=== PATIENT | female | born 1950 | race African-American/Black ===

== ENCOUNTER 2016-12-10 06:14 | Emergency (ER) | payer BC, MEDICARE ==
[~2016-12-10] VITALS: Ht 185.4 cm; Wt 114.3 kg
[~2016-12-10 06:14] MED LIST: HYDR-2758 PO; LOSA1TAB2 PO; MELO7.5T29 PO; METO-269 PO
[2016-12-10] MEDS ORDERED: IV NORMAL SALINE 1000ML BAG 1,000 ML IV SCH (06:45)
[2016-12-10] MEDS ORDERED: ONDANSETRON PF 4 MG/2 ML VIAL. IV ONE (07:00)
[2016-12-10 07:05] LABS: BASO # 0.1 x10^3/uL (0.0-0.2); BASO % 1 % (0-3); EOS % 5 % (0-3); HEMATOCRIT 37.6 % (36.0-47.0); HEMOGLOBIN 12.4 g/dL (12.0-15.5); LYMPH # 1.3 x10^3/uL (1.0-4.8); LYMPH % 31 % (24-48); MEAN CORPUSCULAR HEMOGLOBIN 29 pg (25-35); MEAN CORPUSCULAR HGB CONC 33 g/dL (31-37); MEAN CORPUSCULAR VOLUME 88 fL (79-100); MONO % 13 % (0-9); NEUT % 50 % (31-73); PLATELET COUNT 205 x10^3/uL (140-400); RED BLOOD COUNT 4.26 x10^6/uL (3.50-5.40); WHITE BLOOD COUNT 4.1 x10^3/uL (4.0-11.0)
--- NOTE | 2016-12-10 07:07 | PHYS DOC ---
Past Medical History Past Medical History: Arthritis, CAD, Diabetes-Type II, Hypertension Past Surgical History: Angioplasty, Hysterectomy, Tonsillectomy, Other Additional Past Surgical Histo: left ankle fracture, left wrist fracture, breast surgery Alcohol Use: None Drug Use: None Adult General Chief Complaint Chief Complaint: MECHANICAL FALL HPI HPI Patient is a 66 year old female who presents with complaint of facial pain and shoulder pain after suffering a fall less than 1 hour prior to arrival. The patient states that she was leaving her apartment and had a heavy bag that caused her to lose her balance and fall onto her face and right shoulder from standing onto a concrete surface. Patient denies loss of consciousness. Patient states that she chipped her teeth and hit the right side of her cheek and lip on the concrete surface. Patient states that she is having severe pain along the top and right side of her shoulder as well as her neck. The patient was placed in a c-collar by EMS prior to arrival. Patient denies any loss of feeling in her extremities. The patient states that she takes 162 mg of aspirin daily. Patient has history of hypertension, coronary artery disease, and arthritis. Patient rates her pain as 9 out of 10. Review of Systems Review of Systems Constitutional: Denies fever or chills [] Eyes: Denies change in visual acuity, redness, or eye pain [] HENT: Facial pain, abrasions, chipped teeth [] Respiratory: Denies cough or shortness of breath [] Cardiovascular: Denies chest pain or edema [] GI: Denies abdominal pain, nausea, vomiting, bloody stools or diarrhea [] : Denies dysuria or hematuria [] Musculoskeletal: Neck pain, right shoulder pain [] Integument: Denies rash or skin lesions [] Neurologic: Denies headache, focal weakness or sensory changes [] Current Medications Current Medications Current Medications Medications (Trade) Dose Ordered Sig/Van Start Time Stop Time Status Last Admin Dose Admin Acetaminophen/ Hydrocodone Bitart (Lortab 7.5/325) 1 tab 1X ONCE 12/10/16 10:00 12/10/16 10:01 Fentanyl Citrate (Fentanyl 2ml Vial) 50 mcg PRN Q15MIN PRN 12/10/16 06:45 12/11/16 06:44 12/10/16 08:08 50 MCG Ondansetron HCl (Zofran) 4 mg 1X ONCE 12/10/16 07:00 12/10/16 07:01 DC 12/10/16 07:10 4 MG Sodium Chloride 1,000 ml @ 100 mls/hr Q10H 12/10/16 06:45 12/10/16 16:44 12/10/16 07:10 100 MLS/HR Allergies Allergies Allergies Coded Allergies Type Severity Reaction Last Updated Verified Sulfa (Sulfonamide Antibiotics) Allergy Severe anaphylaxis 06/14/13 Yes latex Allergy Severe anaphylaxis 06/14/13 Yes Physical Exam Physical Exam Constitutional: Alert, afebrile, appears in moderate discomfort. [] HENT: Normocephalic, bilateral external ears normal, abrasions over right zygomatic arch, moderate soft tissue swelling of right upper lip with overlying abrasion, enamel chipped on teeth numbers 8 and 9, oropharynx moist, no oral exudates, nose normal. [] Eyes: PERRLA, EOMI, conjunctiva normal, no discharge. [] Neck: C-collar in place, tenderness palpation over C7, trachea midline, no stridor. [] Cardiovascular:Heart rate regular rhythm, no murmur [] Lungs & Thorax: Bilateral breath sounds clear to auscultation, right clavicular tenderness to palpation, no chest ecchymosis [] Abdomen: Bowel sounds normal, soft, no tenderness, no masses, no pulsatile masses. [] Skin: Warm, dry, no erythema, no rash. [] Back: No tenderness, no CVA tenderness. [] Extremities: Right anterior, superior, and posterior shoulder tenderness to palpation, no cyanosis, no clubbing, range of motion and right shoulder not tested secondary to pain, range of motion intact in right elbow and wrist, no edema. [] Neurologic: Alert and oriented X 3, normal motor function, normal sensory function, no focal deficits noted. [] Current Patient Data Vital Signs Vital Signs Date Time Temp Pulse Resp B/P (MAP) Pulse Ox O2 Delivery O2 Flow Rate FiO2 12/10/16 08:06 76 18 145/76 (99) 98 Room Air 12/10/16 06:14 98.2 98.2 Lab Values Laboratory Tests Test 12/10/16 06:55 White Blood Count 4.1 x10^3/uL (4.0-11.0) Red Blood Count 4.26 x10^6/uL (3.50-5.40) Hemoglobin 12.4 g/dL (12.0-15.5) Hematocrit 37.6 % (36.0-47.0) Mean Corpuscular Volume 88 fL (79-100) Mean Corpuscular Hemoglobin 29 pg (25-35) Mean Corpuscular Hemoglobin Concent 33 g/dL (31-37) Red Cell Distribution Width 13.0 % (11.5-14.5) Platelet Count 205 x10^3/uL (140-400) Neutrophils (%) (Auto) 50 % (31-73) Lymphocytes (%) (Auto) 31 % (24-48) Monocytes (%) (Auto) 13 % (0-9) H Eosinophils (%) (Auto) 5 % (0-3) H Basophils (%) (Auto) 1 % (0-3) Neutrophils # (Auto) 2.1 x10^3uL (1.8-7.7) Lymphocytes # (Auto) 1.3 x10^3/uL (1.0-4.8) Monocytes # (Auto) 0.5 x10^3/uL (0.0-1.1) Eosinophils # (Auto) 0.2 x10^3/uL (0.0-0.7) Basophils # (Auto) 0.1 x10^3/uL (0.0-0.2) Prothrombin Time 13.7 SEC (11.7-14.0) Prothrombin Time INR 1.1 (0.8-1.1) PTT 31 SEC (24-38) Sodium Level 140 mmol/L (136-145) Potassium Level 4.0 mmol/L (3.5-5.1) Chloride Level 104 mmol/L (98-107) Carbon Dioxide Level 28 mmol/L (21-32) Anion Gap 8 (6-14) Blood Urea Nitrogen 15 mg/dL (7-20) Creatinine 1.0 mg/dL (0.6-1.0) Estimated GFR (Cockcroft-Gault) 66.7 Glucose Level 118 mg/dL (70-99) H Calcium Level 8.9 mg/dL (8.5-10.1) Magnesium Level 1.8 mg/dL (1.8-2.4) Laboratory Tests 12/10/16 06:55 Laboratory Tests 12/10/16 06:55 EKG EKG Not performed [] Radiology/Procedures Radiology/Procedures [facility] [address] [place] [address] IMAGING REPORT Signed PATIENT: ANY BETANCOURT ACCOUNT: [id number] : 1950 LOCATION: ER AGE: 66 SEX: F EXAM STATUS: REG ER ORD. PHYSICIAN: KAIT HULL MD REASON: fall from standing, head and facial trauma PROCEDURE: CT HEAD AND MAXILLOFACIAL WO CT head and maxillofacial without contrast 12/10/2016 Clinical indication: Fall from standing, head and facial trauma. Comparison: None. Technique: Multiple CT noncontrast images of the head and maxillofacial. Coronal and sagittal reformations of the maxillofacial region were obtained. RS Compliance Statement: One or more of the following individualized dose reduction techniques were utilized for this examination: 1. Automated exposure control 2. Adjustment of the mA and/or kV according to patient size 3. Use of iterative reconstruction technique Findings: Head: No acute intracranial hemorrhage or extra-axial fluid collection. Ventricles and subarachnoid spaces are normal in size and configuration. Velarde-white matter interfaces are maintained. Basilar cisterns are patent. No midline shift. Maxillofacial: Premandibular and maxillary midline soft tissue contusion. There is a minimally displaced midline nasal bone fracture. There is a 3 mm calcific density in the deep subcutaneous tissues at midline of the anterior nose which may represent a displaced fracture or retained foreign body (series 6/image 36). Maxillary sinus gray, orbital wall, zygomatic arches and mandible and pterygoid plates are unremarkable without acute fracture or dislocation. Globes and orbits are normal in size and configuration. Intraconal fat is clear. Impression: Head: 1. No acute intracranial hemorrhage. Maxillofacial: 1. Age-indeterminate minimally displaced midline nasal bone fracture. 2. 3 mm radiopaque density at midline at the level of the lower nasal bones may represent displaced fracture or retained foreign body. 3. Moderate premaxillary and premandibular soft tissues contusion. DICTATED and SIGNED BY: SUZANNE ROSSI MD DATE: 12/10/16 0752 CC: KAIT HULL MD; DIXON CORDOBA MD ~ [facility] [address] [place] [address] IMAGING REPORT Signed PATIENT: ANY BETANCOURT ACCOUNT: [id number] : 1950 LOCATION: ER AGE: 66 SEX: F EXAM STATUS: REG ER ORD. PHYSICIAN: KAIT HULL MD REASON: fall from standing, neck pain PROCEDURE: CT CERVICAL SPINE WO CONTRAST CT cervical spine without contrast 12/10/2016 Clinical indication: Fall from standing, neck pain. Comparison: Same day CT head and maxillofacial. Technique: Multiple CT noncontrast images of the cervical spine. Coronal and sagittal reformations were obtained. PQRS Compliance Statement: One or more of the following individualized dose reduction techniques were utilized for this examination: 1. Automated exposure control 2. Adjustment of the mA and/or kV according to patient size 3. Use of iterative reconstruction technique Findings: Cervical spine: There is reversal of the normal cervical lordosis centered at C4-C5, likely degenerative. There is 2 mm of anterolisthesis of C4 on C5. Partial ankylosis of C2-C3 vertebral body and posterior elements. No acute cervical spine fracture or subluxation. The paraspinal soft tissues are unremarkable. Visualized lung apices are clear. There is multilevel cervical disc degeneration greatest to moderate degree at C5-C6 with disc space narrowing and uncovertebral hypertrophy, facet hypertrophy and posterior disc osteophyte complex. Mild cervical spondylosis at C2-C3 C4-C5 and C6-C7. There is [id number] bilateral neural foraminal narrowing at C5-C6. Posterior disc osteophyte complex results in mild to moderate spinal canal narrowing posterior to C5-C6 and C3-C4. Impression: 1. No acute cervical spine fracture or subluxation. 2. Multilevel cervical disc degeneration and facet hypertrophy resulting in degenerative neural foraminal narrowing, greatest in mild to moderate degree, bilaterally at C5-C6. 3. Degenerative spinal canal narrowing, greatest in mild to moderate degree, at C3-C4 and C5-C6. DICTATED and SIGNED BY: SUZANNE ROSSI MD DATE: 12/10/16 0807 CC: KAIT HULL MD; DIXON CORDOBA MD ~ [facility] [address] [place] [address] IMAGING REPORT Signed PATIENT: ANY BETANCOURT ACCOUNT: [id number] : 1950 LOCATION: ER AGE: 66 SEX: F EXAM STATUS: REG ER ORD. PHYSICIAN: KAIT HULL MD REASON: fall from standing, clavicular and right shoulder pain PROCEDURE: SHOULDER 2+V RIGHT Right shoulder, 3 views, 12/10/2016: History: Pain, fall No fracture or dislocation is identified. There is minimal spurring at the AC joint. There is mild spurring along the glenoid rim. IMPRESSION: No acute bony abnormality is detected. DICTATED and SIGNED BY: LEON LEAVITT MD DATE: 12/10/16914 CC: KAIT HULL MD; DIXON CORDOBA MD ~ [facility] [address] [place] [address] IMAGING REPORT Signed PATIENT: ANY BETANCOURT ACCOUNT: [id number] : 1950 LOCATION: ER AGE: 66 SEX: F EXAM STATUS: REG ER ORD. PHYSICIAN: KAIT HULL MD REASON: fall from standing, clavicular and right shoulder pain PROCEDURE: PORTABLE CHEST 1V Portable chest, 12/10/2016: History: Fall, pain Comparison is made to a study from 06/14/2013. The heart size and pulmonary vascularity are normal. The lungs are clear. There is no evidence of pleural fluid. IMPRESSION: No acute cardiopulmonary abnormality is detected. DICTATED and SIGNED BY: LEON LEAVITT MD DATE: 12/10/16835 CC: KAIT HULL MD; DIXON CORDOBA MD ~ [] Course & Med Decision Making Course & Med Decision Making Pertinent Labs and Imaging studies reviewed. (See chart for details) Patient was given IV fentanyl for pain. Patient's CT imaging showed evidence of nasal bone fracture but no evidence of intracranial bleeding or cervical spine fracture. The patient's right upper extremity was placed in a sling for comfort with recommended range of motion as tolerated. Patient was prescribed [place] for outpatient treatment of pain. The patient was recommended to follow-up with her primary doctor in the next 2 days for reevaluation. Patient was also referred to Dr. Gurrola of oral maxillofacial surgery for evaluation in the next 5 days for dental injury. Advised return emergency department for any worsening symptoms. Patient voiced understanding and in agreement with treatment plan. Dragon Disclaimer Dragon Disclaimer This electronic medical record was generated, in whole or in part, using a voice recognition dictation system. Departure Departure Impression: Primary Impression: Facial contusion Additional Impressions: Shoulder injury Dental injury Nasal bone fracture Disposition: 01 HOME, SELF-CARE Condition: STABLE Referrals: DIXON CORDOBA MD (PCP) LISANDRA GURROLA DMD Patient Instructions: Dental Injury, Facial or Scalp Contusion, Nasal Fracture , Shoulder Pain Additional Instructions: Follow-up with Dr. Gurrola of Oral Maxillofacial Surgery in the next 5 days for evaluation of your dental injury. Follow-up with your primary doctor in 1 week for reevaluation if you continue to have significant shoulder pain. Return to the emergency department for any worsening or severe symptoms. Scripts Hydrocodone/Apap 5-325 (NORCO 5-325 TABLET) 1 Each Tablet 1-2 TAB PO Q4-6HRS Y for PAIN, #20 TAB Prov: KAIT HULL MD 12/10/16 Problem Qualifiers Primary Impression: Facial contusion Encounter type: initial encounter Qualified Codes: S00.83XA - Contusion of other part of head, initial encounter Additional Impressions: Shoulder injury Encounter type: initial encounter Laterality: right Qualified Codes: S49.91XA - Unspecified injury of right shoulder and upper arm, initial encounter Dental injury Encounter type: initial encounter Qualified Codes: S09.93XA - Unspecified injury of face, initial encounter Nasal bone fracture Encounter type: initial encounter Fracture type: closed Qualified Codes: S02.2XXA - Fracture of nasal bones, initial encounter for closed fracture KAIT HULL MD Dec 10, 2016 07:07
[2016-12-10] MEDS: fentaNYL PF VIAL 100 MCG/2 ML VIAL IV PRN ×2 (07:11→08:08)
[2016-12-10 07:15] LABS: INR 1.1 (0.8-1.1); PROTHROMBIN TIME PATIENT 13.7 SEC (11.7-14.0)
[2016-12-10 07:20] LABS: CALCIUM 8.9 mg/dL (8.5-10.1); GFR 66.7; MAGNESIUM 1.8 mg/dL (1.8-2.4)
--- NOTE | 2016-12-10 08:08 | RAD ---
CT head and maxillofacial without contrast 12/10/2016 Clinical indication: Fall from standing, head and facial trauma. Comparison: None. Technique: Multiple CT noncontrast images of the head and maxillofacial. Coronal and sagittal reformations of the maxillofacial region were obtained. PQRS Compliance Statement: One or more of the following individualized dose reduction techniques were utilized for this examination: 1. Automated exposure control 2. Adjustment of the mA and/or kV according to patient size 3. Use of iterative reconstruction technique Findings: Head: No acute intracranial hemorrhage or extra-axial fluid collection. Ventricles and subarachnoid spaces are normal in size and configuration. Velarde-white matter interfaces are maintained. Basilar cisterns are patent. No midline shift. Maxillofacial: Premandibular and maxillary midline soft tissue contusion. There is a minimally displaced midline nasal bone fracture. There is a 3 mm calcific density in the deep subcutaneous tissues at midline of the anterior nose which may represent a displaced fracture or retained foreign body (series 6/image 36). Maxillary sinus gray, orbital wall, zygomatic arches and mandible and pterygoid plates are unremarkable without acute fracture or dislocation. Globes and orbits are normal in size and configuration. Intraconal fat is clear. Impression: Head: 1. No acute intracranial hemorrhage. Maxillofacial: 1. Age-indeterminate minimally displaced midline nasal bone fracture. 2. 3 mm radiopaque density at midline at the level of the lower nasal bones may represent displaced fracture or retained foreign body. 3. Moderate premaxillary and premandibular soft tissues contusion.
--- NOTE | 2016-12-10 08:16 | RAD ---
CT cervical spine without contrast 12/10/2016 Clinical indication: Fall from standing, neck pain. Comparison: Same day CT head and maxillofacial. Technique: Multiple CT noncontrast images of the cervical spine. Coronal and sagittal reformations were obtained. PQRS Compliance Statement: One or more of the following individualized dose reduction techniques were utilized for this examination: 1. Automated exposure control 2. Adjustment of the mA and/or kV according to patient size 3. Use of iterative reconstruction technique Findings: Cervical spine: There is reversal of the normal cervical lordosis centered at C4-C5, likely degenerative. There is 2 mm of anterolisthesis of C4 on C5. Partial ankylosis of C2-C3 vertebral body and posterior elements. No acute cervical spine fracture or subluxation. The paraspinal soft tissues are unremarkable. Visualized lung apices are clear. There is multilevel cervical disc degeneration greatest to moderate degree at C5-C6 with disc space narrowing and uncovertebral hypertrophy, facet hypertrophy and posterior disc osteophyte complex. Mild cervical spondylosis at C2-C3 C4-C5 and C6-C7. There is [id number] bilateral neural foraminal narrowing at C5-C6. Posterior disc osteophyte complex results in mild to moderate spinal canal narrowing posterior to C5-C6 and C3-C4. Impression: 1. No acute cervical spine fracture or subluxation. 2. Multilevel cervical disc degeneration and facet hypertrophy resulting in degenerative neural foraminal narrowing, greatest in mild to moderate degree, bilaterally at C5-C6. 3. Degenerative spinal canal narrowing, greatest in mild to moderate degree, at C3-C4 and C5-C6.
--- NOTE | 2016-12-10 08:39 | RAD ---
Portable chest, 12/10/2016: History: Fall, pain Comparison is made to a study from 06/14/2013. The heart size and pulmonary vascularity are normal. The lungs are clear. There is no evidence of pleural fluid. IMPRESSION: No acute cardiopulmonary abnormality is detected.
--- NOTE | 2016-12-10 09:19 | RAD ---
Right shoulder, 3 views, 12/10/2016: History: Pain, fall No fracture or dislocation is identified. There is minimal spurring at the AC joint. There is mild spurring along the glenoid rim. IMPRESSION: No acute bony abnormality is detected.
[2016-12-10] MEDS ORDERED: HYDR-971 PO (09:29)
[2016-12-10 10:00] VITALS: BP 148/77
[2016-12-10] MEDS ORDERED: HYDROcodone/APAP 7.5/325MG 1 TAB TABLET PO ONE (10:00)
== END 2016-12-10 10:11 | disposition home or self-care (01) ==
LOC: ER 06:14
DX: S02.2XXA Fracture of nasal bones, initial encounter for closed fracture (principal); S00.83XA Contusion of other part of head, initial encounter; S49.91XA Unspecified injury of right shoulder and upper arm, initial encounter; M19.90 Unspecified osteoarthritis, unspecified site; I25.10 Atherosclerotic heart disease of native coronary artery without angina pectoris; E11.9 Type 2 diabetes mellitus without complications; I10 Essential (primary) hypertension; Z95.1 Presence of aortocoronary bypass graft; Z90.710 Acquired absence of both cervix and uterus; Z91.040 Latex allergy status; Z88.2 Allergy status to sulfonamides; W01.0XXA Fall on same level from slipping, tripping and stumbling without subsequent striking against object, initial encounter; Y93.89 Activity, other specified; Y92.89 Other specified places as the place of occurrence of the external cause; Y99.8 Other external cause status
CPT/HCPCS: 36415; 70450; 70486; 71010; 72125; 73030; 80048; 83735; 85027; 85610; 85730; 96361; 96374; 96375; 96376; 99285; J2405; J3010; J7030

== ENCOUNTER → 2017-01-15 | Outpatient (CLI) | payer BC, MEDICARE ==
[~2017-01-15] MED LIST changes: +HYDR-971 PO
--- NOTE | 2017-01-15 12:16 | KCIC ---
Bone mineral density exam History: Postmenopausal, frequent falls, diabetes, adult fracture Comparison: 06/04/2014 Findings: Bone mineral density examination utilizing DEXA was performed. Left hip bone mineral density of 0.851 g/cm2 corresponds with a T score -0.7, Z score -0.1.Comparing the left hip, there has been 0.4% increase. The bone mineral density of the lumbar spine was 1.219 g/cm2 which corresponds with a T-score of 1.6, Z score 2.8. Comparing the lumbar spine, there has been 0.9% increase. By World [employer] on Osteoporosis criteria, a T score of 0 to-1 SD is considered to be within normal limits. A T score of -1 to -2.5 SD is considered osteopenia. A T score less than -2.5 SD is considered osteoporosis Impression: 1. There is normal bone density of the lumbar spine and the left hip. Electronically signed by: Alfa Chinchilla MD (01/15/2017 12:12 PM) [facility]
--- NOTE | 2017-01-15 15:54 | RAD ---
DATE: 01/15/2017 EXAM: MAMMO RACQUEL SCREENING BILATERAL HISTORY: Routine screening COMPARISON: 05/08/2011 The breast parenchyma is heterogeneously dense, which could reduce sensitivity of mammography. Breast parenchyma level C. FINDINGS: 2-D and 3-D tomosynthesis imaging was performed in CC and MLO projections. There is architectural distortion with streaky linear opacities in the lateral aspect of the right breast as best seen on the MLO racquel image #17. There is a given history of previous breast surgery. This finding may have been present on previous studies but less clearly defined on the old 2-D images versus the current tomosynthesis images. The fibroglandular densities in both breasts are dense and quite heterogeneous. No discrete mass or definite new densities are seen. Numerous benign type calcifications are present. No suspicious microcalcifications have developed. IMPRESSION: Architectural distortion in the lateral aspect of the right breast which may be postsurgical. It is better demonstrated on today's tomosynthesis views compared to prior 2-D imaging. Correlation with the site of the patient's previous breast surgery, if known, would be helpful. A targeted ultrasound exam of the right breast is suggested for further evaluation. BI-RADS CATEGORY: 0 INCOMPLETE: NEEDS ADDITIONAL IMAGING EVALUATION AND/OR PRIOR MAMMOGRAMS FOR COMPARISON. RECOMMENDED FOLLOW-UP: ADD ADDITIONAL IMAGING PQRS compliance statement: Patient information was entered into a reminder system with a target due date for the next mammogram. Mammography is a sensitive method for finding small breast cancers, but it does not detect them all and is not a substitute for careful clinical examination. A negative mammogram does not negate a clinically suspicious finding and should not result in delay in biopsying a clinically suspicious abnormality. "Our facility is accredited by the [employer] Mammography Program."
== END | disposition home or self-care (01) ==
LOC: KCIC MAMMO 11:12
PROVIDERS: ATTEND Internal Medicine
DX: Z12.31 Encounter for screening mammogram for malignant neoplasm of breast (principal); E11.9 Type 2 diabetes mellitus without complications; R29.6 Repeated falls; Z78.0 Asymptomatic menopausal state
CPT/HCPCS: 77063; 77080; G0202; 77067